=== PATIENT | male | born 1965 | race Caucasian/White ===

== ENCOUNTER 2019-03-31 13:50 | Emergency (ER) | payer OTHER ==
[2019-03-31 14:08] VITALS: BP 138/94
--- NOTE | 2019-03-31 14:41 | XRAY Report ---
Reason: injury Procedure Date: 03/31/2019 Accession Number: [id number] / [id number] Procedure: XR - Foot 3 View LT CPT Code: Final Report FULL RESULT: EXAM: LEFT FOOT RADIOGRAPHY EXAM DATE: 03/31/2019 02:16 PM. CLINICAL HISTORY: Injury. It foot against a hard object 03/23/2019. COMPARISON: None. TECHNIQUE: 3 views. FINDINGS: Bones: No visible fracture or bone lesion. Mild posterior calcaneal spurring. Joints: No subluxations. Soft Tissues: Unremarkable. IMPRESSION: No acute osseous abnormality. RADIA
--- NOTE | 2019-03-31 14:51 | ED Physician Documentation ---
PD HPI LOWER EXT INJURY - Stated complaint Stated Complaint: LT FOOT PX - Chief complaint Chief Complaint: Ext Problem - History obtained from History obtained from: Patient - History of Present Illness PD HPI LOW EXT INJURY LOCATION: Left, Foot Type of injury: Twist (fell onto it twisting it when getting off a truck) Where injury occurred: Work Timing - onset: How many weeks ago (1) Timing - duration: Weeks (1) Timing - details: Abrupt onset, Still present Severity Comments: moderate top of Left mid foot Improved by: Rest Worsened by: Palpating, Other (walking) Associated symptoms: Swelling. No: Weakness, Numbness, Tingling, Discolored Contributing factors: Work related. No: Anticoagulated, Prior ortho surgery, Prosthetic joint Similar symptoms before: Has not had sx before Recently seen: Not recently seen - Treatment prior to arrival Treatment prior to arrival: none Review of Systems Ten Systems: 10 systems reviewed and negative Constitutional: reports: Reviewed and negative. denies: Fever Cardiac: reports: Reviewed and negative Respiratory: reports: Reviewed and negative Skin: reports: Reviewed and negative Musculoskeletal: reports: Extremity pain, Extremity swelling. denies: Neck pain, Back pain Neurologic: denies: Generalized weakness, Focal weakness, Numbness Immunocompromised: reports: Reviewed and negative PD PAST MEDICAL HISTORY - Past Medical History Past Medical History: No - Present Medications Home Medications: Ambulatory Orders Medication Instructions Recorded Confirmed No Known Home Medications 03/31/19 03/31/19 - Allergies Allergies/Adverse Reactions: Allergies Allergy/AdvReac Type Severity Reaction Status Date / Time No Known Drug Allergies Allergy Verified 03/31/19 14:07 PD ED PE NORMAL - Vitals Vital signs reviewed: Yes - General General: Alert and oriented X 3, No acute distress, Well developed/nourished - HEENT HEENT: Atraumatic, Moist mucous membranes - Neck Neck: Supple, no meningeal sign - Cardiac Cardiac: RRR - Respiratory Respiratory: No respiratory distress - Abdomen Abdomen: Non distended - Male Male : Deferred - Rectal Rectal: Deferred - Derm Derm: Normal color, Warm and dry, No rash - Neuro Neuro: Alert and oriented X 3, No motor deficit, No sensory deficit Eye Opening: Spontaneous Motor: Obeys Commands Verbal: Oriented GCS Score: 15 - Psych Psych: Normal mood, Normal affect PD ED PE EXPANDED - Extremities Extremities: Left foot (top of foot with mild tenderness, swelling and a very small bruise, full ROM, no deformity, neurovascularly intact) Results - Vitals Vitals: Vital Signs - 24 hr 03/31/19 14:06 Temperature 36.8 C Heart Rate 67 Respiratory 20 Rate Blood Pressure 138/94 H O2 Saturation 97 Oxygen O2 Source Room air - Rads (name of study) Left foot xray Radiology: Final report received, EMP read contemporaneously, See rad report PD MEDICAL DECISION MAKING - ED course Complexity details: reviewed results, re-evaluated patient, considered differential, d/w patient ED course: ddx- foot fracture, foot sprain, foot contusion 53 y/o M with L mid foot pain after getting off a truck, reports a twisting motion. Exam here without deformity, mild swelling. Xray neg for fracture. He does have a contusion. Initiate supportive care, NSAIDs and ice and outpt f/u as needed. Departure - Departure Disposition: 01 Home, Self Care Clinical Impression: Contusion of left foot Qualifiers: Encounter type: initial encounter Qualified Code(s): S90.32XA - Contusion of left foot, initial encounter Condition: Stable Record reviewed to determine appropriate education?: Yes Instructions: ED Contusion Foot Follow-Up: your, doctor [Other] - As Needed Comments: You have a foot contusion (bruise). There is no evidence of fracture on your xray. You should use ice for 20 minutes at a time on the area of pain and take ibuprof en 600mg every 8 hours for pain and swelling for the next 5 days. Forms: Activity restrictions Discharge Date/Time: 03/31/19 15:15
[2019-03-31] MEDS ORDERED: IBUPROFEN 600 MG TABLET PO STA (14:58)
== END 2019-03-31 15:15 | disposition home or self-care (01) ==
LOC: ED 13:50
DX: S90.32XA Contusion of left foot, initial encounter (principal); X50.1XXA Overexertion from prolonged static or awkward postures, initial encounter; Y93.89 Activity, other specified; Y99.0 Civilian activity done for income or pay
CPT/HCPCS: 1040M; 73630; 99283; 99284; A9270

== ENCOUNTER 2019-05-13 13:42 | Outpatient (CLI) | payer OTHER ==
--- NOTE | 2019-05-13 14:20 | XRAY Report ---
Reason: FOOT PAIN,LEFT Procedure Date: 05/13/2019 Accession Number: [id number] / [id number] Procedure: XRN - Foot 2 View LT CPT Code: Final Report FULL RESULT: EXAM: LEFT FOOT RADIOGRAPHY EXAM DATE: 05/13/2019 01:59 PM. CLINICAL HISTORY: Foot pain, left. COMPARISON: FOOT 3 VIEW LT 03/31/2019 2:11 PM. TECHNIQUE: 2 views. FINDINGS: Bones: Normal. No fractures or bone lesions. Joints: Normal. No subluxations. Soft Tissues: There is mild soft tissue prominence at the first tarsometatarsal joint. IMPRESSION: No osseous abnormalities detected. Mild soft tissue prominence is seen at the area reported as painful. RADIA
== END 2019-05-13 13:43 | disposition home or self-care (01) ==
LOC: DI.N 13:42
PROVIDERS: ATTEND Family Medicine
DX: M79.672 Pain in left foot (principal)

== ENCOUNTER 2019-11-23 15:14 | Outpatient (CLI) | payer OTHER ==
--- NOTE | 2019-11-23 17:15 | XRAY Report ---
PROCEDURE: Foot 3 View LT INDICATIONS: LT OCCULT FRACTURE BASE 3ED MT TECHNIQUE: 3 views of the foot were acquired. COMPARISON: 05/13/2019 and 03/31/2019 FINDINGS: Bones: A skin BB marking the location of patient's pain is visualized over the medial aspect of the left foot at the level of the distal first metatarsal. No underlying osseous abnormality seen. No hill dence for acute or subacute fracture. There are degenerative changes of the left first metatarsophala ngeal joint. No suspicious osseous erosions. No abnormal periosteal reaction. Small retrocalcaneal sp ur as before. Soft tissues: No tibiotalar joint effusion. Achilles tendon appears normal. IMPRESSION: Left foot without acute or subacute osseous abnormalities. Degenerative changes of the left first metatarsophalangeal joint. If there is continued clinical concern for pathology, then advanced imaging (CT/MRI, or bone scan) ca n be considered for further evaluation. Reviewed by: Randy Miranda MD on 11/23/2019 5:13 PM PDT Approved by: Randy Miranda MD on 11/23/2019 5:13 PM PDT Station ID: [id number]
== END 2019-11-23 15:15 | disposition home or self-care (01) ==
LOC: DI 15:14
PROVIDERS: ATTEND Podiatrist
DX: M19.072 Primary osteoarthritis, left ankle and foot (principal); S92.332A Displaced fracture of third metatarsal bone, left foot, initial encounter for closed fracture

== ENCOUNTER 2020-03-13 17:58 | Outpatient (CLI) | payer MEDICAID | END 2020-03-13 17:59 | disposition EMS.NT | LOC: EMS 17:58 | PROVIDERS: ATTEND Surgery | DX: R06.02 Shortness of breath (principal); R51.9 Headache, unspecified; R11.0 Nausea ==

== ENCOUNTER 2021-06-12 08:52 | Outpatient (CLI) | payer OTHER | END 2021-06-12 23:59 | disposition home or self-care (01) | LOC: LAB.N 08:52 | PROVIDERS: ATTEND Family Medicine | DX: K30 Functional dyspepsia (principal); Z20.822 Contact with and (suspected) exposure to COVID-19 ==

== ENCOUNTER 2022-01-14 10:39 | Emergency (ER) | payer MEDICAID, OTHER ==
[2022-01-14 11:01] VITALS: BP 150/92
--- OUTSIDE RECORDS SUMMARY | 2022-01-14 11:21 | EXTERNAL MEDICAL SUMMARY RPT | Continuity of Care Document ---
:1965 Author Organization [facility] Address [address] [place] [address] Phone Care Team Providers Name Role Phone Unavailable Unavailable Unavailable Jarquin Ma-C,Rot Unavailable Unavailable Travis Referrals Unavailable Unavailable Jarquin Ma-C,Rot Unavailable Unavailable Allergies No information. Encounters No information. Functional Status No information. Immunizations No information. Medications date description facility [id number]+0000 prednisone All [id number]+0000 prednisone All 28665916120222+0000 prednisone All 51857402464604+0000 prednisone All 99734705814571+0000 meloxicam All 08393988346612+0000 meloxicam All 16076522914143+0000 meloxicam All 39430923401364+0000 meloxicam All 72706433401484+0000 meloxicam All 08631244980044+0000 meloxicam All 80724068369076+0000 meloxicam All 06364272112579+0000 meloxicam All 33493203138640+0000 prednisone All 23582712505068+0000 prednisone All 60349480537669+0000 prednisone All 61777517982310+0000 prednisone All 74745135015628+0000 prednisone All 81090550429588+0000 prednisone All 31932341418348+0000 prednisone All 05115260692270+0000 prednisone All 00605419329337+0000 prednisone All 64457757078147+0000 prednisone All 27156296972246+0000 meloxicam All 05275393174164+0000 meloxicam All 44164447049004+0000 meloxicam All 02015788188559+0000 meloxicam All 54031503768746+0000 meloxicam All 10652385406443+0000 meloxicam All Problems No information. Procedures date description facility [id number]+0000 Visit Code Hold All 96260891111891+0000 Visit Code Hold All 34016749489164+0000 Visit Code Hold All 90377728389239+0000 Visit Code Hold All 15150897977071+0000 Visit Code Hold All 27667216203892+0000 Visit Code Hold All 17646951714843+0000 Visit Code Hold All 35394566272352+0000 Visit Code Hold All 21252475109284+0000 Visit Code Hold All 18297316908878+0000 Visit Code Hold All 25603108181685+0000 Visit Code Hold All 16454650112272+0000 Visit Code Hold All 87531652469878+0000 XR SHOULDER 2-3 VIEW All 93934972697836+0000 XR SHOULDER 2-3 VIEW All 59814325813647+0000 XR SHOULDER 2-3 VIEW All 83118144156940+0000 XR SHOULDER 2-3 VIEW All 98644727731234+0000 [facility] Initial Report All [id number]+0000 [facility] Initial Report All [id number]+0000 [facility] Initial Report All [id number]+0000 [facility] Initial Report All [id number]+0000 APF forms All 52644450556633+0000 APF forms All 87061003298236+0000 APF forms All 36101520444095+0000 APF forms All Results/Labs No information. Social History No information. Vital Signs date measurement value units +0000 BMI BMI 25.40 kg/m2 28612058700159+0000 BP_diastolic BP_diastolic 82 mm[H g] +0000 BP_systolic BP_systolic 126 mm[Hg] 51080348985103+0000 heart_rate heart_rate 55 /min 74054154999436+0000 height_metric height_metric 175.26 cm 11892809582145+0000 height_standard height_standard 69 in +0000 respiration_rate respiration_rate 14 /min 24201255190145+0000 temperature_metric temperature_metric 37.22 C 40796569744609+0000 temperature_standard temperature_standard 9 9 F 51557374985191+0000 weight_metric weight_metric 77.75 kg +0000 weight_standard weight_standard 171.4 lb 82431857521340+0000 BMI BMI 25.94 kg/m2 71699152514662+0000 BP_diastolic BP_diastolic 91 mm[H g] 27865880584142+0000 BP_systolic BP_systolic 155 mm[Hg] 43113821112432+0000 heart_rate heart_rate 76 /min 84328183881160+0000 height_metric height_metric 175.26 cm +0000 height_standard height_standard 69 in +0000 respiration_rate respiration_rate 18 /min 07823947682053+0000 temperature_metric temperature_metric 36.67 C 96509760058451+0000 temperature_standard temperature_standard 9 8 F +0000 weight_metric weight_metric 79.38 kg +0000 weight_standard weight_standard 175 lb +0000 BMI BMI 25.94 kg/m2 +0000 BP_diastolic BP_diastolic 91 mmHg +0000 BP_diastolic BP_diastolic 91 mm[H g] +0000 BP_systolic BP_systolic 134 mmHg +0000 BP_systolic BP_systolic 134 mm[Hg] 30142783614740+0000 heart_rate heart_rate 55 /min +0000 height_metric height_metric 175.26 cm +0000 height_standard height_standard 69 in +0000 respiration_rate respiration_rate 16 /min +0000 temperature_metric temperature_metric 36.78 C +0000 temperature_standard temperature_standard 9 8.2 F +0000 weight_metric weight_metric 79.38 kg +0000 weight_standard weight_standard 175 lb
--- NOTE | 2022-01-14 12:29 | ED Physician Documentation ---
PD HPI BACK PAIN - Stated complaint Stated Complaint: BACK PAIN - Chief complaint Chief Complaint: Back Pain - History obtained from History obtained from: Patient - History of Present Illness Timing - onset: How many weeks ago (almost 3 weeks ago) Timing - duration: Weeks (3) Timing - details: Abrupt onset (he was doing heavy lifting of wood panels, w eighing few hundred pounds, with just one other person, and noted onset of neck and low back pain following. No direct impact nor fall. Has had continued pain with ROM since, worse the past few days despite meloxicam from pcp.), Still present Location: Upper, Lower. No: Mid Quality: Pain, Spasm, Aching Associated symptoms: No: Fever, Weakness, Numbness, Incontinent of urine Worsened by: Movement. No: Palpation Contributing factors: Lifting. No: Twisting, Trauma Similar symptoms before: Diagnosis (prior neck disc problems with discectomy surgery several years ago in neck. Prior low back pains without surgeries. Has had injections of discs though.) Recently seen: Clinic (seen Ortho for elbow and wrist pains. Rx of meloxicam.) Review of Systems Constitutional: denies: Fever, Chills Nose: denies: Rhinorrhea / runny nose, Congestion Throat: denies: Sore throat Cardiac: denies: Chest pain / pressure Respiratory: denies: Cough GI: denies: Abdominal Pain, Nausea, Vomiting, Diarrhea : denies: Incontinent Skin: denies: Rash, Lesions Musculoskeletal: reports: Neck pain, Back pain Neurologic: denies: Focal weakness, Numbness PD PAST MEDICAL HISTORY - Past Medical History Cardiovascular: Hypertension Respiratory: None Neuro: None Endocrine/Autoimmune: None Musculoskeletal: Chronic back pain - Present Medications Home Medications: Ambulatory Orders Medication Instructions Recorded Confirmed HYDROcod/ACETAM 5/325 [[place] 5/325] 1 ea PO Q6H PRN #20 tablet 01/14/22 tiZANidine [Zanaflex] 4 mg PO Q8H PRN #25 tablet 01/14/22 - Allergies Allergies/Adverse Reactions: Allergies Allergy/AdvReac Type Severity Reaction Status Date / Time No Known Drug Allergies Allergy Verified 03/31/19 14:07 PD ED PE NORMAL - Vitals Vital signs reviewed: Yes - General General: Alert and oriented X 3, Well developed/nourished, Other (appears in discomfort with guarded/limited ROM of the neck and low back. ) - Neck Neck: Supple, no meningeal sign, No adenopathy, Other (some paracervical tenderness) - Cardiac Cardiac: RRR, No murmur - Respiratory Respiratory: Clear bilaterally - Abdomen Abdomen: Soft, Non tender - Back Back: No CVA TTP, Other (some tender in lumbar area middle without obvious deformity. ) - Derm Derm: Normal color, Warm and dry, No rash - Neuro Neuro: Alert and oriented X 3, No motor deficit, No sensory deficit, Normal speech, Other (normal reflexes at knees. Has pain in wrists and right elbow due to arthritis in those areas. No weakness per se. ) Results - Vitals Vitals: Vital Signs - 24 hr 01/14/22 10:58 Temperature 36.8 C Heart Rate 56 L Respiratory 17 Rate Blood Pressure 150/92 H O2 Saturation 98 Oxygen O2 Source Room air - Rads (name of study) cervical CT Radiology: Prelim report reviewed (degenerative disc process. No acute fractures. ), See rad report lumbar CT Radiology: Prelim report reviewed (degenerative/arthritic changes; no acute fractures. No central stenosis. ), See rad report PD MEDICAL DECISION MAKING - ED course Complexity details: re-evaluated patient (only given Tylenol in ER as he is driving himself home. ), considered differential (no direct force injury but he is concerned about prior disc problems and neck fusion due to the pain. ), d/w patient Departure - Departure Disposition: 01 Home, Self Care Condition: Stable Record reviewed to determine appropriate education?: Yes Instructions: ED Low Back Pain Injury, ED Sprain Strain Neck Prescriptions: HYDROcod/ACETAM 5/325 [[place] 5/325] 1 ea PO Q6H PRN #20 tablet PRN Reason: Pain tiZANidine [Zanaflex] 4 mg PO Q8H PRN #25 tablet PRN Reason: Spasms Comments: No signs of fractures no other acute abnormalities on your CT scan of the neck nor lumbar area. Presume muscle strain and spasms. You can use some anti- inflammatory such as ibuprofen or naproxen 2-3 times daily. To that add Tylenol if needed for pain. You can also add hydrocodone if needed for worse pain and tizanidine for muscle spasms. These have been called into the [facility] pharmacy for you. I am prescribing a short course of narcotic pain medication for you. These are potentially dangerous and addictive medications that should be used carefully. These medications may constipate you. Take an xawj-qpt-nwdujqn stool softener such as docusate twice daily with plenty of water while taking these medications. If you go 24 hours without a bowel movement, take ncdm-ujk-lmqoknj MiraLAX, per package instructions. Do not drink or drive while taking these medications. If you received narcotic or sedating medications while in the emergency department do not drive for 24 hours. Store this medication in a safe, secure place and out of reach of children. It is a violation of federal law to give or sell this medication to another person or to use in a manner other than prescribed. The ED will not refill narcotic prescriptions, including prescriptions lost or stolen. You can dispose of unwanted medications at the [facility]'s office or at several pharmacies such as [facility]. Discharge Date/Time: 01/14/22 15:01
[2022-01-14] MEDS ORDERED: ACETAMINOPHEN 325 MG TABLET PO STA (12:44)
--- NOTE | 2022-01-14 14:13 | CT Report ---
PROCEDURE: CT cervical spine without contrast INDICATIONS: neck pain for 2 weeks after lifting at work TECHNIQUE: Noncontrast 3 mm thick sections acquired from the skull base to the T4 level. Sagittal and coronal r eformats were then constructed. For radiation dose reduction, the following was used: automated exp osure control, adjustment of mA and/or kV according to patient size. COMPARISON: None. FINDINGS: Image quality: Excellent. Bones: No fractures or dislocations. Visualized superior ribs are intact. There is straightening o f normal cervical lordosis in the upper cervical spine. There is C5-6 and C6-7 interbody fusion with anterior plate and screw instrumentation and good graft incorporation noted. Small circumferential disc bulge at C4-5 results in mild central stenosis. Small osteophyte at C5-6 r esults in mild central stenosis. Soft tissues: Prevertebral soft tissues are normal in thickness. No paravertebral hematomas. No ap ical pneumothoraces. IMPRESSION: 1. No evidence of fracture or malalignment. 2. Mild degenerative disc disease without significant central stenosis Reviewed by: Saulo Calvo MD on 01/14/2022 1:11 PM L[facility] Approved by: Saulo Calvo MD on 01/14/2022 1:11 PM AKDT Station ID: [id number]
--- NOTE | 2022-01-14 14:16 | CT Report ---
PROCEDURE: LUMBAR SPINE WO INDICATIONS: lumbar pain abrupt 2 weeks after lifting TECHNIQUE: Noncontrast 3 mm thick sections acquired from the T12 level to the sacrum. Sagittal and coronal refo rmats were constructed. For radiation dose reduction, the following was used: automated exposure co ntrol, adjustment of mA and/or kV according to patient size. COMPARISON: None. FINDINGS: Image quality: Excellent. Bones: There is normal bony alignment. No acute vertebral body compression fractures. No suspiciou s lytic or blastic bony lesions. Central spinal caliber is of normal overall caliber. No pars defec ts. Incidental note is made of partial lumbarization of the L5 vertebral body, a transitional element T12-L1: Normal in appearance. L1-L2: Normal in appearance. L2-L3: Normal in appearance. L3-L4: Disc space narrowing with circumferential disc bulge results in mild central and mild bilate ral foraminal stenosis L4-L5: Circumferential disc bulge and hypertrophic facet joints results in mild central stenosis. M ild bilateral foraminal stenosis L5-S1: Circumferential disc bulge results in mild to moderate central stenosis. Mild bilateral fora devon stenosis present. Soft tissues: No retroperitoneal masses or hematomas. Visualized aorta is normal in caliber. IMPRESSION: 1. Mild degenerative changes results in mild central and foraminal stenosis appear no fracture or mal alignment. 2. Incidental transitional anatomy Reviewed by: Saulo Calvo MD on 01/14/2022 1:15 PM [facility] Approved by: Saulo Calvo MD on 01/14/2022 1:15 PM AKKAMARI Station ID: [id number]
== END 2022-01-14 15:01 | disposition home or self-care (01) ==
LOC: ED 10:39
DX: M54.50 Low back pain, unspecified (principal); M54.2 Cervicalgia; I10 Essential (primary) hypertension
CPT/HCPCS: 72125; 72131; 99282; 99284; A9270; 1040M

== ENCOUNTER 2023-07-08 08:12 | Emergency (ER) | payer OTHER, MEDICAID ==
--- NOTE | 2023-07-08 09:25 | ED Physician Documentation ---
History of Present Illness - Stated complaint Stated Complaint: LOWER BACK/LEG PX - Chief complaint Chief Complaint: Back Pain - History obtained from History obtained from: Patient - Additonal information Additional information: The patient comes to the emergency department chief complaint of back pain for the last 4 days. He has a history of back issues and various kinds and some previous workplace injuries that have affected his neck and back. He states that because of this, he transition to a job that requires less physical labor, though there is still a physical aspect of the job. 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 He denies a specific injury that started this particular flareup, but states that by the end of the workday Friday, which was 4 days ago, he was starting to have increasing soreness in his low back. He states that it is more to the left but is somewhat on the right as well. He states that the pain goes down through both buttocks and into his thighs. It is a sharp pain as well as a deep ache. No numbness or tingling in his lower extremities. No loss of bowel or bladder control. No dysuria or fever. No abdominal pain. The patient states he has not been able to sleep since because he is constantly uncomfortable. He has been trying to move around a little bit to keep some mobility, but has been avoiding lifting anything or bending or twisting since. According to records, he had cervical and lumbar spine CTs a couple years ago. No MRI on record. No other complaints at this time. PD PAST MEDICAL HISTORY - Past Medical History Past Medical History: Yes Cardiovascular: Hypertension Respiratory: None Neuro: None Endocrine/Autoimmune: None Musculoskeletal: Chronic back pain - Past Surgical History Past Surgical History: Yes - Present Medications Home Medications: Ambulatory Orders Medication Instructions Recorded Confirmed Cyclobenzaprine [Flexeril] 10 mg PO TID PRN #20 tablet 07/08/23 HYDROcod/ACETAM 5/325 [Benedict 5/325] 1 - 2 tablet PO Q6H PRN #14 tablet 07/08/23 predniSONE [Deltasone] 10 mg PO [id number] #42 tab 07/08/23 - Allergies Allergies/Adverse Reactions: Allergies Allergy/AdvReac Type Severity Reaction Status Date / Time No Known Drug Allergies Allergy Verified 07/08/23 08:28 - Social History Does the pt smoke?: No Smoking Status: Never smoker Does the pt drink ETOH?: No Does the pt have substance abuse?: No - Immunizations Immunizations are current?: Yes - POLST Patient has POLST: No PD ED PE NORMAL - Vitals Vital signs reviewed: Yes - General General: Alert and oriented X 3, No acute distress, Well developed/nourished - HEENT HEENT: Atraumatic, PERRL, EOMI, Moist mucous membranes - Neck Neck: Supple, no meningeal sign - Cardiac Cardiac: RRR, No murmur - Respiratory Respiratory: No respiratory distress, Clear bilaterally - Abdomen Abdomen: Soft, Non tender, Non distended - Derm Derm: Normal color, Warm and dry, No rash - Extremities Extremities: No deformity, Other (Tenderness to palpation over the left lumbar paraspinal musculature and less so on the right. Tenderness over the left SI joint. The patient ambulates slowly on the narrow-base gait but appears stiff.) - Neuro Neuro: Alert and oriented X 3, shim plug cutter 2-12 intact, No motor deficit, No sensory deficit, Normal speech - Psych Psych: Normal mood, Normal affect Results - Vitals Vitals: Vital Signs - 24 hr 07/08/23 08:21 Temperature 36.7 C Heart Rate 67 Respiratory 16 Rate Blood Pressure 115/85 H O2 Saturation 97 Oxygen O2 Source Room air PD Medical Decision Making - ED course Complexity details: reviewed old records, considered differential, d/w patient ED course: The patient's symptoms were somewhat similar to previous episodes, that without a specific trigger. I suspected that most likely, the constant bending and crouching had strained his back and cause some spasm and inflammation. He did not have any other concerning features like neurologic deficits, fever, or abdominal pain to indicate likelihood of another, more serious etiology. The patient was treated symptomatically in the emergency department with IM Toradol and Decadron. He was driving home and so he was not given any controlled substances. I have discussed with him the need for follow-up with primary care to discuss MRI if his symptoms continue for more than the next couple of weeks. We have discussed the usual indications for return. Departure - Departure Disposition: 01 Home, Self Care Clinical Impression: Back pain Qualifiers: Back pain location: low back pain Chronicity: acute Back pain laterality: bilateral Sciatica presence: with sciatica Sciatica laterality: bilateral sciatica Qualified Code(s): M54.42 - Lumbago with sciatica, left side; M54.41 - Lumbago with sciatica, right side Condition: Stable Instructions: ED Neck Back Pain General Prescriptions: predniSONE [Deltasone] 10 mg PO [id number] #42 tab Cyclobenzaprine [Flexeril] 10 mg PO TID PRN #20 tablet PRN Reason: Spasms HYDROcod/ACETAM 5/325 [Benedict 5/325] 1 - 2 tablet PO Q6H PRN #14 tablet PRN Reason: Pain Comments: You have been treated in the emergency department some medication for your back pain today. It is most likely that you strained your back in the presence of old injuries by bending and crouching a lot at work. This is most likely caused some pressure on the nerves that make up the sciatic nerve, and likely has also caused some inflammation and muscle spasm. There is no evidence of a more serious condition causing your back pain at this time. Prescriptions for some medications to help with this acute flareup have been electronically transmitted to the [facility] pharmacy in [place]. However, it is important that you follow-up with primary care for your general care, as well as to discuss the possibility of MRI, should your symptoms continue. Our clinic transitional care nurse for emergency department patient follow-up this week is the [facility] in [place]. Please give them a call to set up your appointment for soon as possible for follow-up. Their number is [phone]. Please be sure to let them know that you were seen at the emergency department and that you are calling to set up follow-up care.
[2023-07-08] MEDS: KETOROLAC 60 MG/2 ML VIAL IM STA (09:31)
[2023-07-08] MEDS: DEXAMETHASONE 10 MG/ML VIAL IM STA (09:31)
[2023-07-08 09:56] VITALS: BP 122/84; O2SAT 100
== END 2023-07-08 09:51 | disposition home or self-care (01) ==
LOC: ED 08:12
DX: M54.42 Lumbago with sciatica, left side (principal); I10 Essential (primary) hypertension
CPT/HCPCS: 1040M; 96372; 99283